=== PATIENT | female | born 1965 | race Two or more races ===

== ENCOUNTER 2018-04-01 13:15 | Inpatient (IN) | payer OTHER ==
[~2018-04-01] VITALS: Ht 147.3 cm; Wt 59.0 kg
[~2018-04-01 13:15] MED LIST: APRAZOLAM; CATAFLAM50 MG PO; CIPRO500 MG PO; LEVOXYL25 MCG; METFORMIN HCL500 MG; NORFLEX100 MG; RELAFEN500 MG; TEMAZEPAM30 MG; URIN D.S. TABLE1 TAB PO; VISTARIL50 MG; ZOLOFT25 MG
== END 2018-04-07 19:43 | disposition home or self-care (01) | DRG 690 ==
LOC: ER 13:15 → MEDI 21:18 → SEC-K 21:18 → MEDI 22:18
PROC: BW25ZZZ Computerized Tomography (CT Scan) of Chest, Abdomen and Pelvis (ICD-10-PCS; principal; 2018-04-01)
DX: N39.0 Urinary tract infection, site not specified (principal); K80.80 Other cholelithiasis without obstruction; E03.8 Other specified hypothyroidism; E11.9 Type 2 diabetes mellitus without complications; B96.29 Other Escherichia coli [E. coli] as the cause of diseases classified elsewhere; M79.7 Fibromyalgia

== ENCOUNTER 2018-05-12 15:59 | Emergency (ER) | payer OTHER ==
[~2018-05-12] VITALS: Ht 147.3 cm; Wt 59.0 kg
[2018-05-12] MEDS ORDERED: TRIFLUOPERAZINE1 MG (16:19)
[2018-05-12] MEDS ORDERED: [UNRECOGNIZED DRUG - OTHER] (16:20)
== END 2018-05-12 21:23 | disposition home or self-care (01) ==
LOC: ER 15:59
DX: S92.512A Displaced fracture of proximal phalanx of left lesser toe(s), initial encounter for closed fracture (principal); S93.491A Sprain of other ligament of right ankle, initial encounter; S80.01XA Contusion of right knee, initial encounter; W18.09XA Striking against other object with subsequent fall, initial encounter; Y93.89 Activity, other specified; Y92.018 Other place in single-family (private) house as the place of occurrence of the external cause; Y99.8 Other external cause status

== ENCOUNTER 2019-04-15 12:19 | Emergency (ER) | payer OTHER ==
[~2019-04-15] VITALS: Ht 147.3 cm; Wt 59.0 kg
[~2019-04-15 12:19] MED LIST changes: +TRIFLUOPERAZINE1 MG; +[UNRECOGNIZED DRUG - OTHER]
[2019-04-15] MEDS ORDERED: MEDROLPACK PO (14:53)
[2019-04-15] MEDS ORDERED: TRAMADOL HCL50 MG PO (14:53)
== END 2019-04-15 15:00 | disposition home or self-care (01) ==
LOC: ER 12:19
DX: M54.5 Low back pain (principal)

== ENCOUNTER 2020-05-09 12:29 | Emergency (ER) | payer OTHER ==
[~2020-05-09] VITALS: Ht 147.3 cm; Wt 59.4 kg
[~2020-05-09 12:29] MED LIST changes: +MEDROLPACK PO; +TRAMADOL HCL50 MG PO
[2020-05-09] MEDS ORDERED: GABAPENTIN600 MG PO (13:10)
[2020-05-09] MEDS ORDERED: LEVOTHYROXINE50 MCG PO (13:10)
[2020-05-09] MEDS ORDERED: ATORVASTATIN CA20 MG PO (13:10)
[2020-05-09] MEDS ORDERED: AMITRIPTYLINE H50 MG PO (13:10)
[2020-05-09] MEDS ORDERED: RISPERIDONE0.5 MG PO (13:10)
[2020-05-09] MEDS ORDERED: CRANBERRY PLUS1 EACH PO (13:11)
[2020-05-09] MEDS ORDERED: MAGNESIUM250 MG PO (13:11)
[2020-05-09] MEDS ORDERED: SERTRALINE HCL100 MG PO (13:11)
[2020-05-09] MEDS ORDERED: [UNRECOGNIZED DRUG - OTHER] PO (13:11)
[2020-05-09] MEDS ORDERED: MELATONIN 5 MG1 EAC1 PO (13:12)
== END 2020-05-09 17:49 | disposition home or self-care (01) ==
LOC: ER 12:29
DX: J06.9 Acute upper respiratory infection, unspecified (principal); Z20.828 Contact with and (suspected) exposure to other viral communicable diseases

== ENCOUNTER 2021-06-06 14:52 | Emergency (ER) | payer OTHER ==
[~2021-06-06] VITALS: Ht 147.3 cm; Wt 55.3 kg
[~2021-06-06 14:52] MED LIST changes: +AMITRIPTYLINE H50 MG PO; +ATORVASTATIN CA20 MG PO; +CRANBERRY PLUS1 EACH PO; +GABAPENTIN600 MG PO; +LEVOTHYROXINE50 MCG PO; +MAGNESIUM250 MG PO; +MELATONIN 5 MG1 EAC1 PO; +RISPERIDONE0.5 MG PO; +SERTRALINE HCL100 MG PO; +[UNRECOGNIZED DRUG - OTHER] PO
[2021-06-06] MEDS ORDERED: TENORMIN25 MG (15:27)
[2021-06-06] MEDS ORDERED: FORTAMET500 MG (15:27)
== END 2021-06-07 | disposition home or self-care (01) ==
LOC: ER 14:52
DX: M54.5 Low back pain (principal)

== ENCOUNTER 2023-10-02 12:05 | Emergency (ER) | payer OTHER ==
[~2023-10-02] VITALS: Ht 147.3 cm; Wt 59.0 kg
[~2023-10-02 12:05] MED LIST changes: +FORTAMET500 MG; +TENORMIN25 MG
[2023-10-02] MEDS ORDERED: METFORMIN HCL500 M4 PO (12:33)
[2023-10-02] MEDS ORDERED: METOPROLOL SUCC25 MG PO (12:33)
[2023-10-02 15:56] LABS: HEMATOCRIT 37.3 % (36.0-45.00); HEMOGLOBIN 12.3 g/dL (12.0-15.00); MEAN CELL VOLUME 81.5 fL (80.00-100.00); MEAN CORPUSCULAR HEMOGLOBIN 26.7 pg (27.00-32.0); MEAN CORPUSCULAR HGB CONC 32.8 g/dl (32.0-36.0); PLATELET COUNT 251 K/uL (150-450); RED BLOOD COUNT 4.58 M/uL (4.00-6.00); RED CELL DISTRIBUTION WIDTH 14.8 % (11.5-14.5)
[2023-10-02] MEDS ORDERED: PAXLOVID 300-11 EAC1 PO (17:46)
[2023-10-02] MEDS ORDERED: AMOX-CLAV 875-1 EACH PO (17:46)
== END 2023-10-02 18:17 | disposition home or self-care (01) ==
LOC: ER 12:06
PROVIDERS: Nurse Practitioner Family
DX: U07.1 COVID-19 (principal); E11.9 Type 2 diabetes mellitus without complications; Z79.84 Long term (current) use of oral hypoglycemic drugs; I10 Essential (primary) hypertension; E03.9 Hypothyroidism, unspecified; E78.49 Other hyperlipidemia; M79.7 Fibromyalgia; G62.9 Polyneuropathy, unspecified
CPT/HCPCS: 36415; 71046; 96372; 99284; J0696; J1100